=== PATIENT | female | born 1980 | race American Indian/Alaskan Native ===

== ENCOUNTER 2019-08-20 08:06 | Emergency (ER) | payer OTHER ==
[2019-08-20 08:15] VITALS: BP 146/93
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
== END 2019-08-20 10:28 | disposition left against medical advice (07) ==
LOC: ED 08:06
DX: M54.5 Low back pain (principal); R07.89 Other chest pain; V49.49XA Driver injured in collision with other motor vehicles in traffic accident, initial encounter; Y93.89 Activity, other specified; Y92.410 Unspecified street and highway as the place of occurrence of the external cause; Y99.8 Other external cause status